=== PATIENT | male | born 1985 | race African-American/Black ===

== ENCOUNTER 2017-11-26 10:30 | Outpatient (CLI) | payer BC | END 2017-11-26 10:31 | disposition home or self-care (01) | LOC: BICULT 10:30 | PROVIDERS: ATTEND Nurse Practitioner Family | DX: R10.9 Unspecified abdominal pain (principal); R11.0 Nausea | CPT/HCPCS: 76700 ==

== ENCOUNTER 2017-12-06 14:20 | Outpatient (CLI) | payer BC ==
[~2017-12-06 14:20] MED LIST: ISOVUE-370 76%-LOCM 1 ML ONE
== END 2017-12-06 14:21 | disposition home or self-care (01) ==
LOC: BICCT 14:20
PROVIDERS: ATTEND Nurse Practitioner Family
DX: R10.9 Unspecified abdominal pain (principal); R11.0 Nausea; K64.8 Other hemorrhoids
CPT/HCPCS: 74177

== ENCOUNTER 2019-05-16 02:10 | Emergency (ER) | payer BC | END 2019-05-16 02:27 | disposition left against medical advice (07) | LOC: ERS 02:10 | DX: Z53.21 Procedure and treatment not carried out due to patient leaving prior to being seen by health care provider (principal) ==

== ENCOUNTER 2019-08-19 07:26 | Day surgery (SDC) | payer OTHER ==
[2019-08-18 12:04] VITALS: BMI 21.5
[2019-08-19 08:20] LABS: Hemoglobin 16.4 g/dL (14.0-18.0); Mean Corpuscular HGB CONC 34.4 g/dL (32.0-36.0); Mean Corpuscular Hemoglobin 35.3 pg (27.0-31.0); Mean Platelet Volume 7.3 fL (7.4-10.4); Platelet Count 258 thou/uL (130-400); RBC Distribution Width 12.5 % (11.5-14.5); Red Blood Cell (RBC) Count 4.65 mill/uL (4.70-6.10); White Blood Cell (WBC) Count 6.5 thou/uL (4.8-10.8)
[2019-08-19 08:34] LABS: Band 2 % (5-11); Eosinophils 4 % (0-10); Lymphocytes 40 % (21-51); MDiff Complete? YES; Macrocytosis SLIGHT = 6-15 cells (100X) (0-5/hpf); Monocytes 11 % (0-10); Neutrophil 43 % (42-75); Platelet Morphology Comment Appears Adequate
[2019-08-19] MEDS ORDERED: Lidocaine 1% PF 5 ML VIAL ONE (10:12)
[2019-08-19] MEDS ORDERED: Ketorolac Tromethamine 30 MG/ML VIAL ONE ×2 (10:12→12:54)
[2019-08-19] MEDS ORDERED: Dexamethasone 20 MG/5 ML VIAL ONE (10:12)
[2019-08-19] MEDS ORDERED: Ondansetron PF 4 MG/2 ML Vial ONE (10:12)
[2019-08-19] MEDS ORDERED: PROPOFOL 200 MG/20 ML VIAL ONE (10:12)
[2019-08-19] MEDS ORDERED: Bacitracin Zinc Ointment 30 gm TUBE ONE (10:44)
[2019-08-19] MEDS ORDERED: Midazolam HCl 2 mg/2 ml Vial ONE (10:46)
[2019-08-19] MEDS ORDERED: Fentanyl 100 MCG/2 ML VIAL ONE ×3 (10:46→12:52)
[2019-08-19] MEDS ORDERED: Promethazine HCl 25 MG/ML VIAL ONE (12:43)
[2019-08-19] MEDS ORDERED: Meperidine HCl/PF 25 MG/ML VIAL ONE (12:47)
[2019-08-19] MEDS ORDERED: HYDROcodone/Acetaminophen 5/325 mg Tablet ONE (13:22)
--- NOTE | 2019-08-20 09:03 | OP ---
DATE OF PROCEDURE: 08/19/2019 PREOPERATIVE DIAGNOSIS: Right index finger mass 2.0 cm with nerve compression. FINDINGS: Postop appeared to be a benign inclusion cyst, but marked compression of digital nerves, radial and ulnar. PROCEDURE PERFORMED: 1. Right index finger radial nerve digital neuroplasty under magnification. 2. Right index finger ulnar digital nerve neuroplasty under magnification. 3. Zaynab repair. 4. Excision of benign mass 2.0 cm, right index finger. Findings at the back wall of the mass was adhered to approximately 50% of the zaynab and we lifted out, we spared this and repaired it. DESCRIPTION OF PROCEDURE: After successful endotracheal anesthesia, limb was prepped and draped. We gave the patient 10 mL of 0.5% Marcaine prior to incision and 5 more at the level of metacarpophalangeal joint without epinephrine. We then outlined a Kallie type incision with 5 mm incision distal to the palmar DIP joint flexion crease of the right index finger. We carried through skin and subcutaneous tissue and at the level of PIP joint, identified both neurovascular bundles. The mass immediately had an area of skin, we could see it was spongiform, very very light green white, and we made a small hole in it, material consistent with inclusion cyst with leak and we then dissected it. First, we did the neuroplasty on the nerves, radial 1st and ulnar, them from the wall of the mass, which was confluent with the mass. Once we had done this on both sides, protecting the artery and neurovascular bundle, we then began to dissect it off the tendon sheath and noticed that approximately half of the A4 zaynab was adherent to the mass, so we left the A4 zaynab attached on the radial side, had removed it on the ulnar side with the mass and once we lifted the mass, it from the back wall of the mass from the zaynab. The mass was then sent off for specimen. We irrigated the wound, the nerve was intact completely including the trifurcation. We then repaired 70% of the zaynab with a 5-0 Prolene in a [id number] interrupted fashion sparing the tendon itself. We released the tourniquet. We obtained hemostasis. Then, we closed the wound with interrupted 4-0 nylon in interrupted simple pattern. Small bulky dressing was applied and the patient left the operating room without evidence of anesthetic operative complication. Job ID: [id number]
== END 2019-08-19 14:08 | disposition home or self-care (01) ==
LOC: SDC 07:26
PROVIDERS: ATTEND Orthopaedic Surgery Hand Surgery
PROC: 01N40ZZ Release Ulnar Nerve, Open Approach (ICD-10-PCS; principal; 2019-08-19)
PROC: 0JBJ0ZZ Excision of Right Hand Subcutaneous Tissue and Fascia, Open Approach (ICD-10-PCS; principal; 2019-08-19)
PROC: 01N60ZZ Release Radial Nerve, Open Approach (ICD-10-PCS; principal; 2019-08-19)
DX: L72.0 Epidermal cyst (principal); I10 Essential (primary) hypertension; F17.290 Nicotine dependence, other tobacco product, uncomplicated
CPT/HCPCS: 85025; 88304; J0690; J1100; J1885; J2001; J2175; J2250; J2405; J2550; J2704; J3010; J3490